=== PATIENT | male | born 1990 | race Caucasian/White ===

== ENCOUNTER 2020-05-24 06:50 | Emergency (ER) | payer SELFPAY ==
[2020-05-24 07:53] LABS: Basophils % 0.7 % (0-1.3); Hematocrit 39.8 % (39.6-49.0); Lymphocytes % 28.5 % (15.3-44.8); MPV 9.3 fL (7.6-11.3); RBC Red Blood Cell Count 4.69 M/uL (4.33-5.43)
[2020-05-24 08:01] LABS: Protime INR 1.08
[2020-05-24 08:54] LABS: ALT/SGPT 25 U/L (12-78); AST/SGOT 11 U/L (15-37); Albumin 4.3 g/dL (3.4-5.0); Alkaline Phosphatase 44 U/L (45-117); BUN Blood Urea Nitrogen 7 mg/dL (7-18); Bicarbonate 27 mmol/L (21-32); Bilirubin Direct 0.2 mg/dL (0-0.2); Bilirubin Total 0.6 mg/dL (0.2-1.0); Glucose Level 72 mg/dL (74-106); Potassium 3.7 mmol/L (3.5-5.1); Sodium Level 140 mmol/L (136-145)
[2020-05-24 09:57] LABS: Barbiturates NEGATIVE (NEGATIVE); Benzodiazepines NEGATIVE (NEGATIVE); Cocaine NEGATIVE (NEGATIVE); METHAMPHETAM NEGATIVE (NEGATIVE); Methadone NEGATIVE (NEGATIVE); Opiates NEGATIVE (NEGATIVE); Phencyclidine NEGATIVE (NEGATIVE); THC Cannibis NEGATIVE (NEGATIVE)
--- NOTE | 2020-05-24 10:11 | EDPHYS ---
Physician Documentation [facility] Name: Moe Recinos Age: 30 yrs Sex: Male : 1990 Arrival Date: 05/24/2020 Time: 06:55 Bed 7 Private MD: ED Physician Jose E Russell HPI: 05/24 07:13 This 30 yrs old Male presents to ER via Ambulatory with complaints of joint [facility] pain. 07:13 This is a 30 year old male with a history of depression, anxiety that presents to the [facility] ED with complaints of inflammation and joint pain. Patient states the symptoms started apr 6 when he noticed his ears would become red. Patient states since then he has developed joint pain, irritation to the eyes. Patient also states this has made him depressed since he does not have health insurance and has had thoughts of harming himself. Patient has no plan. Patient has had similar thoughts in his teenage years but made no attempt then. . Historical: - Allergies: 07:07 No Known Allergies; sg - PMHx: 07:07 None; sg - PSHx: 07:07 None; sg - Immunization history:: Adult Immunizations up to date. - Social history:: Smoking status: Patient denies any tobacco usage or history of. ROS: 07:13 Constitutional: Negative for fever, chills, and weight loss, Cardiovascular: Negative [facility] for chest pain, palpitations, and edema, Respiratory: Negative for shortness of breath, cough, wheezing, and pleuritic chest pain. 07:13 Allergy/Immunology: Positive for joint pain. 07:13 All other systems are negative. Exam: 07:13 Constitutional: This is a well developed, well nourished patient who is awake, alert, jmm and in no acute distress. Head/Face: atraumatic. Eyes: EOMI, no conjunctival erythema appreciated ENT: Moist Mucus Membranes Neck: Trachea midline, Supple Chest/axilla: Normal chest wall appearance and motion. Cardiovascular: Regular rate and rhythm. No edema appreciated Respiratory: Normal respirations, no respiratory distress appreciated Abdomen/GI: Non distended, soft Back: Normal ROM Skin: General appearance color normal MS/ Extremity: Moves all extremities, no obvious deformities appreciated, no edema noted to the lower extremities Neuro: Awake and alert, normal gait Psych: Behavior is normal, Mood is normal, Patient is cooperative and pleasant 07:43 ECG was reviewed by the Attending Physician. [facility] Vital Signs: 07:04 BP 121 / 74; Pulse 92; Resp 16; Temp 98.1; Pulse Ox 100% on R/A; Weight 73.48 kg; sg Height 6 ft. 0 in. (182.88 cm); 08:30 BP 109 / 75; Pulse 81; Resp 16; Pulse Ox 100% on R/A; tw2 09:27 BP 104 / 81; Pulse 87; Resp 17; Pulse Ox 100% on R/A; tw2 10:13 BP 104 / 76; Pulse 72; Resp 17; Pulse Ox 99% on R/A; tw2 07:04 Body Mass Index 21.97 (73.48 kg, 182.88 cm) sg MDM: 07:03 Patient medically screened. [facility] 09:47 Data reviewed: vital signs, nurses notes. Counseling: I had a detailed discussion with [facility] the patient and/or guardian regarding: the historical points, exam findings, and any diagnostic results supporting the discharge/admit diagnosis, lab results, the need for outpatient follow up, to return to the emergency department if symptoms worsen or persist or if there are any questions or concerns that arise at home. ED course: Patient is alert and non toxic in appearance in the ED. Patient states he currently does not want to harm himself but is frustrated due to lack of insurance for further evaluation. Patient prescribed oral steroids and is advised to follow up with indiginant care. Patient given information. Patient is otherwise given strict return precautions. Patient understood and agrees with the plan of care. . 05/24 07:11 Order name: Urine Drug Screen; Complete Time: 09:59 [facility] 05/24 08:11 Order name: CBC with Automated Diff; Complete Time: 08:14 [facility] 05/24 08:11 Order name: Protime (+INR); Complete Time: 08:14 [facility] 05/24 08:11 Order name: PTT, Activated Partial Thromb; Complete Time: 08:14 [facility] 05/24 08:12 Order name: Salicylates Level; Complete Time: 08:14 [facility] 05/24 08:29 Order name: Alcohol Serum/Plasma; Complete Time: 08:35 [facility] 05/24 07:11 Order name: EKG; Complete Time: 08:11 [facility] 05/24 07:11 Order name: EKG - Nurse/Tech; Complete Time: 07:35 [facility] 05/24 07:11 Order name: IV Saline Lock; Complete Time: 07:37 [facility] 05/24 07:11 Order name: Labs collected and sent; Complete Time: 07:37 [facility] 05/24 07:11 Order name: Urine Dipstick-Ancillary (obtain specimen); Complete Time: 09:26 [facility] 05/24 08:42 Order name: Basic Metabolic Panel; Complete Time: 09:04 [facility] 05/24 08:42 Order name: Liver (Hepatic) Function; Complete Time: 09:05 [facility] 05/24 08:42 Order name: Acetaminophen Level; Complete Time: 09:05 [facility] 05/24 09:26 Order name: Urine Dipstick--Ancillary (enter results) bd EC:43 Rate is 79 beats/min. Rhythm is regular. QRS [place] is Normal. MO interval is normal. QRS jmm interval is normal. QT interval is normal. No Q waves. T waves are Normal. No ST changes noted. Reviewed by me. Administered Medications: 10:04 Drug: Decadron - Dexamethasone 10 mg Route: IVP; Site: right forearm; tw2 10:28 Follow up: Response: No adverse reaction tw2 Disposition: 13:58 Co-signature as Attending Physician, Jose E Russell MD I agree with the assessment and [facility] plan of care. Disposition: 05/24/20 10:10 Discharged to Home. Impression: Pain in unspecified joint. - Condition is Stable. - Discharge Instructions: Joint Pain. - Prescriptions for Hydroxyzine HCl 25 mg Oral Tablet - take 1 tablet by ORAL route every 6 hours As needed; 30 tablet. Prednisone 20 mg Oral Tablet - take 3 tablet by ORAL route once daily for 5 days; 15 tablet. - Medication Reconciliation Form, Thank You Letter, Antibiotic Education, Prescription Opioid Use form. - Follow up: Private Physician; When: 2 - 3 days; Reason: Recheck today's complaints, Continuance of care, Re-evaluation by your physician. Signatures: Dispatcher [employer] EDBobo Caicedo, Jose E Munoz RN, MD MD cha Mickail, Joel, PA PA jmm Wise, Tara RN RN tw2 Corrections: (The following items were deleted from the chart) 09:51 08:11 SALICYLATE+C.LAB.BRZ ordered. EDMS EDMS 09:53 08:11 ACETAMINOPHEN+C.LAB.BRZ ordered. EDMS EDMS 09:53 08:11 BASIC METABOLIC PANEL+C.LAB.BRZ ordered. EDMS EDMS 09:53 08:11 CBC+H.LAB.BRZ ordered. EDMS EDMS 09:53 08:11 ETHANOL+C.LAB.BRZ ordered. EDMS EDMS 09:53 08:11 HEPATIC FUNCTION+C.LAB.BRZ ordered. EDMS EDMS 09:53 08:11 PROTIME (+INR)+COAG.LAB.BRZ ordered. EDMS EDMS 09:53 08:11 PTT, ACTIVATED+COAG.LAB.BRZ ordered. EDMS EDMS 10:28 10:10 05/24/2020 10:10 Discharged to Home. Impression: Pain in unspecified joint. tw2 Condition is Stable. Forms are Medication Reconciliation Form, Thank You Letter, Antibiotic Education, Prescription Opioid Use. Follow up: Private Physician; When: 2 - 3 days; Reason: Recheck today's complaints, Continuance of care, Re-evaluation by your physician. jennam
--- NOTE | 2020-05-24 10:11 | ER ---
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 pt reports one of the symptoms is blindness and Im feeling trevor trapped, I didn't know what else to do. Coronavirus screen: Client denies travel out of the [place] in the last 14 days. At this time, the client does not indicate any symptoms associated with coronavirus-19. Ebola Screen: Patient negative for fever greater than or equal to 101.5 degrees Fahrenheit, and additional compatible Ebola Virus Disease symptoms Patient denies exposure to infectious person. Patient denies travel to an Ebola-affected area in the 21 days before illness onset. No symptoms or risks identified at this time. Initial Sepsis Screen: Does the patient meet any 2 criteria? No. Patient's initial sepsis screen is negative. Does the patient have a suspected source of infection? No. Patient's initial sepsis screen is negative. Risk Assessment: Do you want to hurt yourself or someone else? Patient reports no desire to harm self or others. Onset of symptoms was May 24, 2020. Care prior to arrival: None. 07:04 Acuity: DANO 4 sg 07:04 Method Of Arrival: Ambulatory sg Historical: - Allergies: 07:07 No Known Allergies; sg - PMHx: 07:07 None; sg - PSHx: 07:07 None; sg - Immunization history:: Adult Immunizations up to date. - Social history:: Smoking status: Patient denies any tobacco usage or history of. Screenin:30 Abuse screen: Denies threats or abuse. Nutritional screening: No deficits noted. tw2 Tuberculosis screening: No symptoms or risk factors identified. Fall Risk None identified. 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 General: Appears in no apparent distress. slender, well groomed, Behavior is calm, cooperative, quiet. Pain: Denies pain. Neuro: Level of Consciousness is awake, alert, obeys commands, Oriented to person, place, time, situation. Cardiovascular: Heart tones S1 S2 Patient's skin is warm and dry. Respiratory: Airway is patent Respiratory effort is even, unlabored, Respiratory pattern is regular, symmetrical, Breath sounds are clear bilaterally. GI: No signs and/or symptoms were reported involving the gastrointestinal system. Abdomen is flat, Bowel sounds present X 4 quads. : No signs and/or symptoms were reported regarding the genitourinary system. EENT: Reports "a fullness or hissing in my LEFT ear". Derm: No signs and/or symptoms reported regarding the dermatologic system. Musculoskeletal: Range of motion: intact in all extremities. 08:29 Reassessment: Patient appears in no apparent distress at this time. No changes from tw2 previously documented assessment. Patient and/or family updated on plan of care and expected duration. Pain level reassessed. Patient is alert, oriented x 3, equal unlabored respirations, skin warm/dry/pink. 09:27 Reassessment: Patient appears in no apparent distress at this time. No changes from tw2 previously documented assessment. Patient and/or family updated on plan of care and expected duration. Pain level reassessed. Patient is alert, oriented x 3, equal unlabored respirations, skin warm/dry/pink. 10:13 Reassessment: Patient appears in no apparent distress at this time. No changes from tw2 previously documented assessment. Patient and/or family updated on plan of care and expected duration. Pain level reassessed. Patient is alert, oriented x 3, equal unlabored respirations, skin warm/dry/pink. 10:27 Reassessment: Patient appears in no apparent distress at this time. No changes from tw2 previously documented assessment. Patient and/or family updated on plan of care and expected duration. Pain level reassessed. Patient is alert, oriented x 3, equal unlabored respirations, skin warm/dry/pink. Vital Signs: 07:04 BP 121 / 74; Pulse 92; Resp 16; Temp 98.1; Pulse Ox 100% on R/A; Weight 73.48 kg; sg Height 6 ft. 0 in. (182.88 cm); 08:30 BP 109 / 75; Pulse 81; Resp 16; Pulse Ox 100% on R/A; tw2 09:27 BP 104 / 81; Pulse 87; Resp 17; Pulse Ox 100% on R/A; tw2 10:13 BP 104 / 76; Pulse 72; Resp 17; Pulse Ox 99% on R/A; tw2 07:04 Body Mass Index 21.97 (73.48 kg, 182.88 cm) ED Course: 06:55 Patient arrived in ED. bp1 06:56 Leeroy Cyr PA is PHCP. carlin 07:02 Esvin Minor, RN is Primary Nurse. jl7 07:02 Bed in low position. Call light in reach. Pulse ox on. NIBP on. tw2 07:06 Triage completed. sg 07:06 Arm band placed on. sg 07:34 Inserted saline lock: 20 gauge in right antecubital area, using aseptic technique. tw2 Blood collected. 07:40 Jose E Russell MD is Attending Physician. [facility] 07:40 EKG done, by ED staff, reviewed by Leeroy MERINO. em1 10:28 No provider procedures requiring assistance completed. IV discontinued, intact, tw2 bleeding controlled, No redness/swelling at site. Pressure dressing applied. Administered Medications: 10:04 Drug: Decadron - Dexamethasone 10 mg Route: IVP; Site: right forearm; tw2 10:28 Follow up: Response: No adverse reaction tw2 Outcome: 10:10 Discharge ordered by . [facility] 10:28 Discharged to home ambulatory. tw2 10:28 Condition: stable 10:28 Discharge instructions given to patient, Instructed on discharge instructions, follow up and referral plans. medication usage, Demonstrated understanding of instructions, follow-up care, medications, Prescriptions given X 2. 10:28 Patient left the ED. tw2 Signatures: Bobo Webb RN BROOKS Leeroy Cyr PA PA jmm Martinez, Eric em1 Nadine Sorenson RN RN tw2 Esvin Minor RN RN jl7 Janelle Moore bp1
[2020-05-24] MEDS ORDERED: dexAMETHasone 4 MG/ML VIAL ONE (10:13)
[2020-05-24 10:35] VITALS: TEMP 98.1
--- NOTE | 2020-05-24 10:44 | EKG ---
Test Date: 2020-05-24 Test Time: 07:40:36 Janitor Supervisor: EMEKA MEASUREMENT RESULTS: Intervals: Rate: 79 ME: 146 QRSD: 92 QT: 364 QTc: 417 [place]: P: 68 ME: 146 QRS: 82 T: 74 INTERPRETIVE STATEMENTS: Normal sinus rhythm Early repolarization Normal ECG No previous ECG available for comparison Electronically Signed On 05-24-20 10:43:24 CDT by Ponce Hall
[2020-05-24 10:47] VITALS: BP 104/76; O2SAT 99
[2020-05-24 11:27] LABS: Urine Blood NEGATIVE (NEG); Urine Glucose NEGATIVE (NEG); Urine Protein NEGATIVE (NEG); Urine Specific Gravity 1.015 (1.005-1.030)
== END 2020-05-24 10:28 | disposition home or self-care (01) ==
LOC: ER 06:50
DX: M25.50 Pain in unspecified joint (principal)
CPT/HCPCS: 36415; 80048; 80076; 80307; 80320; 80329; 81003; 85025; 85610; 85730; 93005; 96374; 99284; J1100

== ENCOUNTER 2021-02-26 17:52 | Emergency (ER) | payer SELFPAY ==
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
[2021-02-26] MEDS ORDERED: METOPROLOL TAR 50 MG TAB ONE (20:18)
[2021-02-26] MEDS ORDERED: IBUPROFEN 200 MG TAB PO ONE (20:18)
[2021-02-26] MEDS ORDERED: IBUPROFEN 400 MG TAB ONE (20:19)
--- NOTE | 2021-02-26 21:45 | RAD REPORT ---
EXAM DESCRIPTION: CT - Head Brain Wo Cont - 02/26/2021 9:29 pm CLINICAL HISTORY: HEADACHE COMPARISON: No comparisons TECHNIQUE: Axial 5 mm thick images of the head were obtained without IV contrast. All CT scans are performed using dose optimization technique as appropriate and may include automated exposure control or mA/KV adjustment according to patient size. FINDINGS: No intracranial hemorrhage, mass, edema or shift of mid-line structures. No acute infarcti on changes seen. No abnormal extra-axial fluid collections. Ventricles are normal. Mastoid air cells and visualized portions of the paranasal sinuses are clear. No acute bony findings. IMPRESSION: Negative non-contrast CT head examination.
--- NOTE | 2021-02-26 21:52 | EDPHYS ---
Physician Documentation [facility] Name: Moe Recinos Age: 30 yrs Sex: Male : 1990 Arrival Date: 02/26/2021 Time: 17:57 Bed 25 Private MD: ED Physician Don Pierre HPI: 02/26 19:53 This 30 yrs old Male presents to ER via Ambulatory with complaints of pkl Headache. 19:53 The patient complains of pain to the right voodoo and left voodoo. The patient pkl describes the headache as pulsating and burning sensation. Onset: The symptoms/episode began/occurred 1 week(s) ago. Associated signs and symptoms: Pertinent positives: rapid pulse. Historical: - Allergies: 18:11 No Known Allergies; ca1 - Home Meds: 18:11 None [Active]; ca1 - PMHx: 18:11 Autoimmune disease; ca1 - PSHx: 18:11 None; ca1 - Immunization history:: Client reports having NOT received the Covid vaccine. Flu vaccine is not up to date. - Social history:: Smoking status: Patient denies any tobacco usage or history of. Patient uses caffeine, Patient/guardian denies using alcohol, street drugs, IV drugs. ROS: 19:53 Eyes: Negative for injury, pain, redness, and discharge, ENT: Negative for injury, pkl pain, and discharge, Neck: Negative for injury, pain, and swelling. 19:53 Cardiovascular: Positive for rapid pulse. 19:53 Respiratory: Negative for cough, shortness of breath. 19:53 Abdomen/GI: Negative for abdominal pain, nausea, vomiting, and diarrhea. 19:53 Back: Negative for acute changes. 19:53 : Negative for urinary symptoms. 19:53 MS/extremity: Negative for acute changes. 19:53 Skin: Negative for rash. 19:53 Neuro: Positive for headache, of the left voodoo and right voodoo. Exam: 19:53 Head/Face: Normocephalic, atraumatic. Eyes: Pupils equal round and reactive to light, pkl extra-ocular motions intact. Lids and lashes normal. Conjunctiva and sclera are non-icteric and not injected. Cornea within normal limits. Periorbital areas with no swelling, redness, or edema. ENT: Nares patent. No nasal discharge, no septal abnormalities noted. Tympanic membranes are normal and external auditory canals are clear. Oropharynx with no redness, swelling, or masses, exudates, or evidence of obstruction, uvula midline. Mucous membranes moist. Neck: Trachea midline, no thyromegaly or masses palpated, and no cervical lymphadenopathy. Supple, full range of motion without nuchal rigidity, or vertebral point tenderness. No Meningismus. Chest/axilla: Normal chest wall appearance and motion. Nontender with no deformity. No lesions are appreciated. 19:53 Cardiovascular: Rate: tachycardic, actual rate is 123 bpm, Rhythm: regular. 19:53 Respiratory: the patient does not display signs of respiratory distress, Respirations: normal, Breath sounds: are clear throughout. 19:53 Abdomen/GI: Bowel sounds: normal, Palpation: abdomen is soft and non-tender, in all quadrants. 19:53 Back: Exam negative for acute changes. 19:53 : Exam negative for acute changes. 19:53 Musculoskeletal/extremity: Exam is negative for acute changes. 19:53 Skin: Exam negative for rash. 19:53 Neuro: Orientation: is normal, Mentation: is normal, Cranial nerves: is grossly normal based on the patient's age, Motor: is normal. Vital Signs: 18:09 BP 136 / 83; Pulse 123; Resp 16 S; Temp 98.2(TE); Pulse Ox 99% on R/A; Weight 102.06 kg ca1 (R); Height 6 ft. 1 in. (185.42 cm) (R); Pain 7/10; 20:50 BP 136 / 93; Pulse 101; Resp 18; Pulse Ox 99% ; ea 21:07 BP 138 / 81; Pulse 79; Resp 18; Pulse Ox 98% ; ea 18:09 Body Mass Index 29.68 (102.06 kg, 185.42 cm) ca1 MDM: 19:40 Patient medically screened. pkl 21:41 Data reviewed: vital signs, nurses notes, lab test result(s), radiologic studies, CT pkl scan. 02/26 19:52 Order name: Sed Rate pkl 02/26 19:52 Order name: TSH; Complete Time: 21:00 pkl 02/26 19:53 Order name: Sedimentation Rate, Westergren; Complete Time: 21:00 EDMS 02/26 21:08 Order name: CT Head Brain wo Cont; Complete Time: 21:46 pkl Administered Medications: 20:05 Drug: Motrin (ibuprofen) 600 mg Route: PO; ea 22:07 Follow up: Response: No adverse reaction ea 20:05 Drug: Metoprolol TARTRATE 50 mg Route: PO; ea 22:08 Follow up: Response: No adverse reaction ea Disposition Summary: 02/26/21 21:51 Discharge Ordered Location: Home pkl Problem: new pkl Symptoms: have improved pkl Condition: Stable pkl Diagnosis - Acute headache, Tachycardia pkl Followup: pkl - With: Private Physician - When: 2 - 3 days - Reason: Re-evaluation by your physician Discharge Instructions: - Discharge Summary Sheet pkl Forms: - Medication Reconciliation Form pkl - Thank You Letter pkl - Antibiotic Education pkl - Prescription Opioid Use pkl Prescriptions: - Carvedilol 6.25 mg Oral Tablet - take 1 tablet by ORAL route 2 times per day with food; 60 tablet; Refills: 0, pkl Product Selection Permitted Signatures: Dispatcher [employer] EDDon Lerner MD MD pkl Xin Cruz RN RN ea Candace Germain RN RN ca1 Corrections: (The following items were deleted from the chart) 18:11 18:11 PMHx: None; ca1 ca1
--- NOTE | 2021-02-26 21:52 | ER ---
Nurse's Notes [facility] Name: Moe Recinos Age: 30 yrs Sex: Male : 1990 Arrival Date: 02/26/2021 Time: 17:57 Bed 25 Private MD: Diagnosis: Acute headache, Tachycardia Presentation: 02/26 18:09 Chief complaint: Patient states: Been having pain on my temples for ove a week now. I ca1 feel pulsation on my temples and burning sensation. Denies N/V, Denies dizziness. Coronavirus screen: Client denies travel out of the [place] in the last 14 days. At this time, the client does not indicate any symptoms associated with coronavirus-19. Ebola Screen: Patient negative for fever greater than or equal to 101.5 degrees Fahrenheit, and additional compatible Ebola Virus Disease symptoms Patient denies exposure to infectious person. Patient denies travel to an Ebola-affected area in the 21 days before illness onset. No symptoms or risks identified at this time. Initial Sepsis Screen: Does the patient meet any 2 criteria? No. Patient's initial sepsis screen is negative. Does the patient have a suspected source of infection? No. Patient's initial sepsis screen is negative. Risk Assessment: Do you want to hurt yourself or someone else? Patient reports no desire to harm self or others. Onset of symptoms was February 26, 2021. 18:09 Method Of Arrival: Ambulatory ca1 18:09 Acuity: DANO 3 ca1 Historical: - Allergies: 18:11 No Known Allergies; ca1 - Home Meds: 18:11 None [Active]; ca1 - PMHx: 18:11 Autoimmune disease; ca1 - PSHx: 18:11 None; ca1 - Immunization history:: Client reports having NOT received the Covid vaccine. Flu vaccine is not up to date. - Social history:: Smoking status: Patient denies any tobacco usage or history of. Patient uses caffeine, Patient/guardian denies using alcohol, street drugs, IV drugs. Screenin:54 Abuse screen: Denies threats or abuse. Nutritional screening: No deficits noted. ea Tuberculosis screening: No symptoms or risk factors identified. Fall Risk None identified. Assessment: 20:07 General: Appears in no apparent distress. Behavior is calm, cooperative, appropriate ea for age. Pain: Complains of pain in left yazidism and right yazidism. Neuro: Level of Consciousness is awake, alert, obeys commands, Oriented to person, place, time. Respiratory: Airway is patent Respiratory effort is even, unlabored, Respiratory pattern is regular, symmetrical. Derm: Skin is pink, warm \T\ dry. 21:07 Reassessment: Provider at bedside updating pt on plan of care. ea 21:31 Reassessment: Patient and/or family updated on plan of care and expected duration. Pain ea level reassessed. Patient is alert, oriented x 3, equal unlabored respirations, skin warm/dry/pink. Returned from CT. 22:06 Reassessment: Patient and/or family updated on plan of care and expected duration. Pain ea level reassessed. Patient is alert, oriented x 3, equal unlabored respirations, skin warm/dry/pink. Discharge instruction given to patient verbalized the understanding of instruction. Vital Signs: 18:09 BP 136 / 83; Pulse 123; Resp 16 S; Temp 98.2(TE); Pulse Ox 99% on R/A; Weight 102.06 kg ca1 (R); Height 6 ft. 1 in. (185.42 cm) (R); Pain 7/10; 20:50 BP 136 / 93; Pulse 101; Resp 18; Pulse Ox 99% ; ea 21:07 BP 138 / 81; Pulse 79; Resp 18; Pulse Ox 98% ; ea 18:09 Body Mass Index 29.68 (102.06 kg, 185.42 cm) ca1 ED Course: 17:57 Patient arrived in ED. ds1 18:10 Triage completed. ca1 18:11 Arm band placed on right wrist. ca1 19:40 Don Pierre MD is Attending Physician. pkl 19:54 Xin Cruz, BROOKS is Primary Nurse. ea 19:54 Patient has correct armband on for positive identification. Bed in low position. Call ea light in reach. Side rails up X2. 20:07 Inserted saline lock: 20 gauge in left antecubital area, using aseptic technique. Blood ea collected. 21:28 CT Head Brain wo Cont In Process Unspecified. EDMS 22:07 No provider procedures requiring assistance completed. IV discontinued, intact, ea bleeding controlled, No redness/swelling at site. Pressure dressing applied. Administered Medications: 20:05 Drug: Motrin (ibuprofen) 600 mg Route: PO; ea 22: Follow up: Response: No adverse reaction ea 20:05 Drug: Metoprolol TARTRATE 50 mg Route: PO; ea 22:08 Follow up: Response: No adverse reaction ea Outcome: 21:51 Discharge ordered by . nadine 22:07 Discharged to home ambulatory. ea 22: Condition: stable 22:07 Discharge instructions given to patient, Instructed on discharge instructions, follow up and referral plans. medication usage, Demonstrated understanding of instructions, follow-up care, medications, Prescriptions given X 2. 22:07 Patient left the ED. ea Signatures: Dispatcher [employer] EDMS Don Pierre MD MD pkl Sanford, Demi ds1 Xin Cruz RN RN Candace Marrufo RN RN ca1 Corrections: (The following items were deleted from the chart) 18:11 18:11 PMHx: None; ca1 ca1
[2021-02-26 22:17] VITALS: TEMP 98.2
[2021-02-26 22:20] VITALS: BP 138/81; O2SAT 98
== END 2021-02-26 22:07 | disposition home or self-care (01) ==
LOC: ER 17:52
DX: R51.9 Headache, unspecified (principal); R00.0 Tachycardia, unspecified
CPT/HCPCS: 36415; 70450; 84443; 85652; 99284